=== PATIENT | female | born 1970 | race African-American/Black ===

== ENCOUNTER 2019-01-12 04:13 | Emergency (ER) | payer MEDICARE ==
[~2019-01-12] VITALS: Ht 165.1 cm; Wt 121.6 kg
[~2019-01-12 04:13] MED LIST: ALBUTEROL SULF8.5 GM INH; AZITHROMYCIN250 MG PO; CALCIUM; PRO AIR INHALER; SENSIPAR; TRAMADOL HCL50 MG PO; Z.0.AMLODIPINE BESYL PO; Z.0.GABAPENTIN300 MG PO; Z.0.METOPROLOL TAR10 PO; ZOLPIDEM TARTRA10 MG; [UNRECOGNIZED DRUG - OTHER] PO; [UNRECOGNIZED DRUG - OTHER] PO
[2019-01-12] MEDS ORDERED: DIATRIZOATE MEGL/DIATRIZOA SOD 30 ML BTL PO ONE (04:53)
[2019-01-12] MEDS ORDERED: ONDANSETRON HCL INJ 2MG/ML 2ML 2 MG/ML VIAL ONE (05:03)
--- NOTE | 2019-01-12 06:22 | Diagnostic Imaging Report ---
EXAMINATION: CT of the abdomen and pelvis without contrast. TECHNIQUE: Spiral CT images of the abdomen and pelvis were performed from the lung bases to the lesser trochanters. No intravenous contrast was given due to history of chronic kidney disease. Dilute Gastrografin was given orally.. Coronal and sagittal reformatted images were obtained. COMPARISON: None. CLINICAL HISTORY:Nausea vomiting and diarrhea, onset today DISCUSSION: ABSENCE OF INTRAVENOUS CONTRAST DECREASES SENSITIVITY FOR DETECTION OF FOCAL LESIONS AND VASCULAR PATHOLOGY. ABDOMEN/PELVIS: LOWER THORAX: Unremarkable. HEPATOBILIARY: No focal hepatic lesions. No intra or extrahepatic biliary ductal dilation. GALLBLADDER: No radio-opaque stones or sludge. No wall thickening. SPLEEN: No splenomegaly. PANCREAS: No focal masses or ductal dilatation. ADRENALS: No adrenal nodules. KIDNEYS/URETERS: Bilateral markedly atrophic kidneys. Punctate nonobstructing calculus in the right interpolar region (series 2, image 24). 3 mm obstructing calculus in the left superior to mid aspect (series 2, image 20). 3 mm nonobstructing calculi in the left inferior pole (series 2, images 27 and 28 and coronal images 67 and 66). No ureteral calculi. No hydronephrosis or obstruction. 2.0 cm fluid density simple cyst in the right superior pole (series 2, image 21). Partially exophytic 0.8 cm hyperdense lesion in the right posterior interpolar region (series 2, image 25). PELVIC ORGANS/BLADDER: Bladder is decompressed but grossly unremarkable. Markedly lobulated uterus with multiple partially calcified masses predominantly in the fundus and inferior aspect of the body, consistent with fibroids. No adnexal masses. PERITONEUM/RETROPERITONEUM: No free air or fluid. LYMPH NODES: No intra-abdominal,retroperitoneal, pelvic or inguinal lymphadenopathy. VESSELS: Mild atherosclerotic calcification of the distal abdominal aorta and proximal iliac vessels. GI TRACT: No bowel dilation or evidence of obstruction. No pericolonic inflammatory changes. Descending and sigmoid colon diverticulosis, without diverticulitis. BONES AND SOFT TISSUES: No aggressive lytic lesions. Moderate degenerative disc changes at L5-S1. Large Schmorl's node at L1. Bilateral L5-S1 pars interarticularis defects without significant spondylolisthesis soft tissues are grossly unremarkable. IMPRESSION: 1. No acute abdominopelvic abnormalities within the limitations of this noncontrast exam. No bowel dilation or obstruction. 2. Bilateral nonobstructing calculi, as described. No ureteral or bladder calculi, hydronephrosis or obstruction. 3. Partially exophytic 0.8 cm hyperdense lesion in the right renal posterior interpolar region, which is indeterminate, but may represent a hemorrhagic cyst. This may be further assessed with renal ultrasound. 4. Descending and sigmoid colon diverticulosis, without diverticulitis. Signed by: Dr. Javier Lake M.D. on 01/12/2019 6:19 AM
--- NOTE | 2019-01-12 06:46 | Diagnostic Imaging Report ---
Examination: Single AP view of the chest. COMPARISON: None. INDICATION: Shortness of breath and chest tightness IMPRESSION: Exam limited by soft tissue attenuation from patient's large body habitus 1. Lines and Tubes: None 2. Lungs are grossly clear. No consolidation or effusion. 3. Enlarged cardiac silhouette, which may be partly due to portable AP projection. Pulmonary vasculature is normal. 4. No acute bony abnormalities. Signed by: Dr. Javier Lake M.D. on 01/12/2019 6:42 AM
[2019-01-12 07:27] LABS: BASOPHILS % 0.3 % (0.0-1.0); EOSINOPHILS # (AUTO) 0.3 (0.0-0.4); EOSINOPHILS % 5.3 % (0.0-6.0); HEMATOCRIT 36.5 % (34.2-44.1); HEMOGLOBIN 11.4 g/dL (12.0-16.0); LYMPHOCYTES # (AUTO) 1.5 (1.0-3.2); LYMPHOCYTES % 23.8 % (18.0-39.1); MEAN CORPUSCULAR HEMOGLOBIN 28.6 pg (28-32); MEAN CORPUSCULAR HGB CONC 31.2 g/dL (31-35); MEAN CORPUSCULAR VOLUME 91.5 fL (81-99); MONOCYTES # (AUTO) 0.6 (0.2-0.8); MONOCYTES % 9.4 % (4.4-11.3); NEUTROPHILS # (AUTO) 3.9 (2.1-6.9); PLATELET COUNT 217 x10e3/uL (140-360); RED BLOOD COUNT 3.99 x10e6/uL (3.6-5.1); RED CELL DISTRIBUTION WIDTH 17.6 % (11.7-14.4)
[2019-01-12 08:02] LABS: ALBUMIN 3.4 g/dL (3.5-5.0); ALBUMIN/GLOBULIN RATIO 0.8 (0.8-2.0); ANION GAP 17.8 mmol/L (8-16); CALCIUM 8.7 mg/dL (8.4-10.2); CREATININE, SERUM 6.59 mg/dL (0.57-1.11); POTASSIUM 4.8 mmol/L (3.5-5.1)
[2019-01-12 08:08] LABS: CREATINE KINASE MB 1.6 ng/mL (0-5.0)
[2019-01-12 08:45] VITALS: BP 124/79
== END 2019-01-12 08:54 | disposition home or self-care (01) ==
LOC: ER 04:13
DX: R06.09 Other forms of dyspnea (principal); R11.2 Nausea with vomiting, unspecified; R19.7 Diarrhea, unspecified; N18.6 End stage renal disease; Z99.2 Dependence on renal dialysis; J45.909 Unspecified asthma, uncomplicated
CPT/HCPCS: 36415; 71045; 74176; 80053; 82550; 82553; 84484; 85025; 93005; 99284; J2405

== ENCOUNTER 2022-04-12 13:12 | Inpatient (IN) | payer MEDICARE ==
[~2022-04-12] VITALS: Ht 165.1 cm; Wt 122.9 kg
[2022-04-12] MEDS ORDERED: SODIUM CHLORIDE FLUSH 10 ML SYR IV PRN (13:45)
[2022-04-12] MEDS ORDERED: ALBUTEROL/IPRATROPIUM 3 ML NEB NEB ONE (13:45)
[2022-04-12 13:46] LABS: BASOPHILS % 0.3 % (0.0-1.0); EOSINOPHILS # (AUTO) 0.1 (0.0-0.4); EOSINOPHILS % 0.6 % (0.0-6.0); LYMPHOCYTES # (AUTO) 1.3 (1.0-3.2); LYMPHOCYTES % 10.8 % (18.0-39.1); MEAN CORPUSCULAR HEMOGLOBIN 26.1 pg (28-32); MEAN CORPUSCULAR HGB CONC 28.3 g/dL (31-35); MEAN CORPUSCULAR VOLUME 92.2 fL (81-99); MONOCYTES # (AUTO) 1.6 (0.2-0.8); MONOCYTES % 13.7 % (4.4-11.3); NEUTROPHILS # (AUTO) 8.7 (2.1-6.9); NEUTROPHILS % 73.8 % (38.7-80.0); PLATELET COUNT 263 x10e3/uL (140-360); RED CELL DISTRIBUTION WIDTH 19.5 % (11.7-14.4)
[2022-04-12 13:48] LABS: HEMATOCRIT 21.2 % (34.2-44.1)
[2022-04-12 14:06] LABS: ALANINE AMINOTRANSFERASE 21 IU/L (0-55); ALBUMIN 3.1 g/dL (3.5-5.0); ALBUMIN/GLOBULIN RATIO 0.6 (0.8-2.0); ALKALINE PHOSPHATASE 88 IU/L (40-150); ANION GAP 28.3 mmol/L (8-16); BLOOD UREA NITROGEN 58 mg/dL (7-26); BUN/CREATININE RATIO 5 (6-25); CALCIUM 9.6 mg/dL (8.4-10.2); CARBON DIOXIDE 23 mmol/L (22-29); CHLORIDE 94 mmol/L (98-107); CREATININE, SERUM 10.95 mg/dL (0.57-1.11); GLUCOSE 128 mg/dL (74-118); POTASSIUM 5.3 mmol/L (3.5-5.1); SODIUM 140 mmol/L (136-145)
[2022-04-12] MEDS ORDERED: SODIUM CHLORIDE 0.9% 250ML 250 ML IV ONE (14:15)
[2022-04-12] MEDS ORDERED: CEFTRIAXONE 1 GM VIAL IV ONE (15:00)
[2022-04-12] MEDS ORDERED: DEXTROSE 50% SYRINGE 50 ML IV STA (15:02)
[2022-04-12] MEDS ORDERED: ALBUTEROL SULF 0.083% NEB SOLN 3 ML NEB NEB STA (15:02)
[2022-04-12] MEDS ORDERED: INSULIN REGULAR, HUMAN 100 UNIT/1 ML IV ONE (15:15)
[2022-04-12] MEDS ORDERED: SODIUM CHLORIDE FLUSH 10 ML SYR INJ PRN (15:30)
[2022-04-12] MEDS ORDERED: SODIUM BICARBONATE 8.4% INJ 50 ML SYR IV ONE (15:30)
[2022-04-12] MEDS ORDERED: CALCIUM GLUC 1 G/50 ML NACL 100 ML IV ONE (15:30)
[2022-04-12] MEDS ORDERED: SODIUM CHLORIDE 0.9% 1000ML 2,000 ML ONE (16:05)
[2022-04-12] MEDS ORDERED: SODIUM CHLORIDE 0.9% 250ML 250 ML ONE ×2 (17:20→21:16)
[2022-04-12] MEDS ORDERED: ALBUTEROL/IPRATROPIUM 3 ML NEB NEB PRN (18:00)
[2022-04-12] MEDS: METOPROLOL TARTRATE 25 MG TAB PO SCH ×2 (18:20→22:00)
[2022-04-12] MEDS ORDERED: GABAPENTIN 300 MG CAP PO SCH (21:00)
[2022-04-12] MEDS ORDERED: ACETAMINOPHEN 325 MG TAB PO PRN (21:00)
[2022-04-12] MEDS ORDERED: ACETAMINOPHEN 325 MG TAB ONE (21:07)
[2022-04-12] MEDS ORDERED: LEVALBUTEROL HCL SOLN NEBU 1.25 MG/3 ML NEB INH PRN (21:30)
[2022-04-12 21:48] LABS: ABG PCO2 46 mmHg (35-45); ABG PH 7.45 (7.35-7.45); ABG PO2 56 mmHg (80-105)
[2022-04-12 21:49] LABS: ABG HCO3 32 mmol/L (22-26); ABG TCO2 33
[2022-04-12] MEDS ORDERED: PIPERACILLIN/TAZOBACTAM SOD 2.25 GM VIAL ONE (21:57)
[2022-04-12] MEDS: LEVALBUTEROL HCL SOLN NEBU 1.25 MG/3 ML NEB INH SCH (22:08)
[2022-04-13] VITALS (19 sets, daily range): BP systolic 121–159; BP diastolic 69–119
[2022-04-13] MEDS: LEVALBUTEROL HCL SOLN NEBU 1.25 MG/3 ML NEB INH SCH ×4 (02:02→19:10)
[2022-04-13] MEDS: GUAIFENESIN 200 MG/10 ML UDC PO PRN (05:17)
[2022-04-13] MEDS: METOPROLOL TARTRATE 25 MG TAB PO SCH ×3 (05:22→21:18)
[2022-04-13 05:34] LABS: BASOPHILS # (AUTO) 0.1 (0.0-0.1); BASOPHILS % 0.7 % (0.0-1.0); EOSINOPHILS # (AUTO) 0.1 (0.0-0.4); EOSINOPHILS % 0.4 % (0.0-6.0); HEMOGLOBIN 6.7 g/dL (12.0-16.0); LYMPHOCYTES # (AUTO) 0.7 (1.0-3.2); LYMPHOCYTES % 5.1 % (18.0-39.1); MEAN CORPUSCULAR HEMOGLOBIN 27.3 pg (28-32); MEAN CORPUSCULAR HGB CONC 30.9 g/dL (31-35); MEAN CORPUSCULAR VOLUME 88.6 fL (81-99); MONOCYTES # (AUTO) 1.7 (0.2-0.8); MONOCYTES % 11.7 % (4.4-11.3); NEUTROPHILS # (AUTO) 11.6 (2.1-6.9); NEUTROPHILS % 81.3 % (38.7-80.0); PLATELET COUNT 229 x10e3/uL (140-360); RED BLOOD COUNT 2.45 x10e6/uL (3.6-5.1); RED CELL DISTRIBUTION WIDTH 18.6 % (11.7-14.4)
[2022-04-13 05:38] LABS: HEMATOCRIT 21.7 % (34.2-44.1)
[2022-04-13 05:56] LABS: ALBUMIN 2.8 g/dL (3.5-5.0); ALBUMIN/GLOBULIN RATIO 0.6 (0.8-2.0); ANION GAP 22.8 mmol/L (8-16); CALCIUM 9.9 mg/dL (8.4-10.2); CREATININE, SERUM 6.83 mg/dL (0.57-1.11); POTASSIUM 4.8 mmol/L (3.5-5.1)
[2022-04-13 06:11] LABS: THYROID STIMULATING HORMONE 0.576 uIU/mL (0.350-4.940)
[2022-04-13 07:41] LABS: BAND NEUTROPHILS % (MANUAL) 15 %; LYMPHOCYTES % (MANUAL) 3 % (19-48); MONOCYTES % (MANUAL) 13 % (3.4-9.0); NEUTROPHILS % (MANUAL) 68 % (40-74); NUCLEATED RED BLOOD CELLS 1; PLATELET ESTIMATE ADEQUATE; PLATELET MORPHOLOGY COMMENT NORMAL
[2022-04-13 07:42] LABS: HYPOCHROMASIA SLIGHT; TARGET CELLS FEW
[2022-04-13] MEDS ORDERED: SODIUM CHLORIDE 0.9% 250ML 250 ML ONE (07:58)
[2022-04-13] MEDS: AMLODIPINE BESYLATE 5 MG TAB PO SCH (08:20)
[2022-04-13] MEDS: GUAIFENESIN/CODEINE 5 ML LIQD PO PRN ×2 (09:41→21:18)
[2022-04-14] VITALS (16 sets, daily range): BP systolic 129–177; BP diastolic 70–115
[2022-04-14] MEDS: LEVALBUTEROL HCL SOLN NEBU 1.25 MG/3 ML NEB INH SCH ×4 (00:42→19:22)
[2022-04-14] MEDS: METOPROLOL TARTRATE 25 MG TAB PO SCH ×3 (06:18→20:53)
[2022-04-14 07:36] LABS: BASOPHILS % 0.3 % (0.0-1.0); EOSINOPHILS # (AUTO) 0.2 (0.0-0.4); EOSINOPHILS % 1.5 % (0.0-6.0); HEMATOCRIT 26.1 % (34.2-44.1); HEMOGLOBIN 7.9 g/dL (12.0-16.0); LYMPHOCYTES # (AUTO) 1.1 (1.0-3.2); MEAN CORPUSCULAR HEMOGLOBIN 27.6 pg (28-32); MEAN CORPUSCULAR HGB CONC 30.3 g/dL (31-35); MEAN CORPUSCULAR VOLUME 91.3 fL (81-99); MONOCYTES # (AUTO) 1.9 (0.2-0.8); MONOCYTES % 13.7 % (4.4-11.3); NEUTROPHILS # (AUTO) 10.3 (2.1-6.9); NEUTROPHILS % 74.9 % (38.7-80.0); PLATELET COUNT 241 x10e3/uL (140-360); RED BLOOD COUNT 2.86 x10e6/uL (3.6-5.1); RED CELL DISTRIBUTION WIDTH 18.3 % (11.7-14.4)
[2022-04-14 08:08] LABS: ALBUMIN 2.7 g/dL (3.5-5.0); ALBUMIN/GLOBULIN RATIO 0.5 (0.8-2.0); CALCIUM 10.3 mg/dL (8.4-10.2); CREATININE, SERUM 8.67 mg/dL (0.57-1.11)
[2022-04-14] MEDS ORDERED: SODIUM CHLORIDE 0.9% 1000ML 2,000 ML IV PRN (08:30)
[2022-04-14] MEDS ORDERED: ALBUMIN 25% 12.5GM 0.25 GM/ML BTL IV PRN (08:30)
[2022-04-14] MEDS ORDERED: LINEZOLID 600 MG/D5W 300ML 300 ML IV SCH (13:00)
[2022-04-14 13:44] LABS: ABG HCO3 33 mmol/L (22-26); ABG PCO2 53 mmHg (35-45); ABG PH 7.41 (7.35-7.45); ABG PO2 201 mmHg (80-105); ABG TCO2 35
[2022-04-14] MEDS ORDERED: GENTAMICIN 80MG/NS 100 ML 100 ML IV ONE ×2 (14:00→18:30)
[2022-04-14] MEDS: AMLODIPINE BESYLATE 5 MG TAB PO SCH (17:41)
[2022-04-14] MEDS: LINEZOLID 600 MG/D5W 300ML 300 ML IV SCH (20:53)
[2022-04-15] VITALS (12 sets, daily range): BP systolic 125–164; BP diastolic 67–120
[2022-04-15] MEDS: LEVALBUTEROL HCL SOLN NEBU 1.25 MG/3 ML NEB INH SCH ×4 (01:38→19:25)
[2022-04-15] MEDS: METOPROLOL TARTRATE 25 MG TAB PO SCH ×3 (06:21→22:27)
[2022-04-15 07:30] LABS: BASOPHILS % 0.3 % (0.0-1.0); EOSINOPHILS # (AUTO) 0.1 (0.0-0.4); EOSINOPHILS % 0.8 % (0.0-6.0); HEMATOCRIT 25.8 % (34.2-44.1); HEMOGLOBIN 7.7 g/dL (12.0-16.0); MEAN CORPUSCULAR HEMOGLOBIN 27.6 pg (28-32); MEAN CORPUSCULAR HGB CONC 29.8 g/dL (31-35); MEAN CORPUSCULAR VOLUME 92.5 fL (81-99); MONOCYTES # (AUTO) 1.2 (0.2-0.8); MONOCYTES % 10.1 % (4.4-11.3); NEUTROPHILS # (AUTO) 9.4 (2.1-6.9); NEUTROPHILS % 78.4 % (38.7-80.0); PLATELET COUNT 251 x10e3/uL (140-360); RED BLOOD COUNT 2.79 x10e6/uL (3.6-5.1); RED CELL DISTRIBUTION WIDTH 18.5 % (11.7-14.4)
[2022-04-15 07:43] LABS: ALBUMIN 2.6 g/dL (3.5-5.0); ALBUMIN/GLOBULIN RATIO 0.5 (0.8-2.0); ANION GAP 25.1 mmol/L (8-16); CALCIUM 10.8 mg/dL (8.4-10.2); CREATININE, SERUM 5.69 mg/dL (0.57-1.11); POTASSIUM 4.1 mmol/L (3.5-5.1)
[2022-04-15] MEDS: LINEZOLID 600 MG/D5W 300ML 300 ML IV SCH ×2 (08:44→19:25)
[2022-04-15] MEDS ORDERED: EPINEPHRINE HCL 1:1000 1ML 1 MG/ML AMP ONE (09:15)
[2022-04-15] MEDS ORDERED: LIDOCAINE HCL 4% 50 ML BTL ONE (09:15)
[2022-04-15] MEDS ORDERED: ALBUTEROL/IPRATROPIUM 3 ML NEB ONE (10:21)
[2022-04-15] MEDS ORDERED: DEXAMETHASONE SOD PHOS INJ 4 MG/ML SDV ONE (12:23)
[2022-04-15] MEDS ORDERED: PROPOFOL IV EMULSION 10 MG/ML 20 ML VIAL ONE (12:23)
[2022-04-15] MEDS ORDERED: SEVOFLURANE INHAL SOLN 250 ML PEN BTL ONE (12:23)
[2022-04-15] MEDS ORDERED: LIDOCAINE HCL 2% LOCAL INJ 5 ML SDV VIAL INJ ONE (12:23)
[2022-04-15] MEDS ORDERED: POVIDONE IODINE 0.05% 0.05 % ML PO ONE (12:23)
[2022-04-15] MEDS ORDERED: ROCURONIUM BROMIDE 10 MG/ML 5ML VIAL IV ONE (12:23)
[2022-04-15] MEDS ORDERED: SUCCINYLCHOLINE CHLORIDE 20 MG/ML 10ML VIAL ONE (12:23)
[2022-04-15] MEDS ORDERED: ONDANSETRON HCL INJ 2MG/ML 2ML 2 MG/ML VIAL ONE (12:23)
[2022-04-15] MEDS ORDERED: FENTANYL CITRATE/PF 100MCG/2 ML INJ ONE (12:29)
[2022-04-15] MEDS: AMLODIPINE BESYLATE 5 MG TAB PO SCH (15:17)
[2022-04-15] MEDS ORDERED: METHYLPREDNISOLONE SOD SUCC 125 MG/2ML VIAL IV ONE (16:15)
[2022-04-15] MEDS: TRAMADOL HCL 50 MG TAB PO PRN ×4 (19:24→20:40)
[2022-04-15] MEDS: GUAIFENESIN/CODEINE 5 ML LIQD PO PRN (23:59)
[2022-04-16] VITALS (19 sets, daily range): BP systolic 134–210; BP diastolic 73–104
[2022-04-16] MEDS: LEVALBUTEROL HCL SOLN NEBU 1.25 MG/3 ML NEB INH SCH ×4 (01:10→18:58)
[2022-04-16] MEDS: METOPROLOL TARTRATE 25 MG TAB PO SCH ×3 (05:11→20:16)
[2022-04-16] MEDS: TRAMADOL HCL 50 MG TAB PO PRN (06:01)
[2022-04-16 07:02] LABS: ALBUMIN 2.8 g/dL (3.5-5.0); ALBUMIN/GLOBULIN RATIO 0.5 (0.8-2.0); ANION GAP 27.9 mmol/L (8-16); CALCIUM 10.8 mg/dL (8.4-10.2); CREATININE, SERUM 7.75 mg/dL (0.57-1.11); POTASSIUM 4.9 mmol/L (3.5-5.1)
[2022-04-16 07:15] LABS: HEMOGLOBIN 7.6 g/dL (12.0-16.0); MEAN CORPUSCULAR HEMOGLOBIN 27.2 pg (28-32); MEAN CORPUSCULAR HGB CONC 29.2 g/dL (31-35); MEAN CORPUSCULAR VOLUME 93.2 fL (81-99); PLATELET COUNT 244 x10e3/uL (140-360); RED BLOOD COUNT 2.79 x10e6/uL (3.6-5.1); RED CELL DISTRIBUTION WIDTH 18.9 % (11.7-14.4)
[2022-04-16] MEDS: AMLODIPINE BESYLATE 5 MG TAB PO SCH (08:28)
[2022-04-16] MEDS: LINEZOLID 600 MG/D5W 300ML 300 ML IV SCH ×2 (08:29→20:15)
[2022-04-16 08:42] LABS: LYMPHOCYTES % (MANUAL) 4 % (19-48); METAMYELOCYTES % (MANUAL) 1 % (0-0); MONOCYTES % (MANUAL) 2 % (3.4-9.0); NEUTROPHILS % (MANUAL) 93 % (40-74); NUCLEATED RED BLOOD CELLS 2; PLATELET ESTIMATE ADEQUATE; PLATELET MORPHOLOGY COMMENT NORMAL; RBC MORPHOLOGY COMMENT NORMAL
[2022-04-16] MEDS ORDERED: EPOETIN ALFA-EPBX 10,000 UNIT/ML VIAL SC ONE (11:15)
[2022-04-16] MEDS: IRON SUCROSE 100 MG in SODIUM CHLORIDE 0.9% 100 ML IV SCH (11:47)
[2022-04-17] VITALS (33 sets, daily range): BP systolic 102–150; BP diastolic 52–97
[2022-04-17] MEDS: ZOLPIDEM TARTRATE 5 MG TAB PO PRN (00:28)
[2022-04-17] MEDS: LEVALBUTEROL HCL SOLN NEBU 1.25 MG/3 ML NEB INH SCH ×4 (01:13→19:05)
[2022-04-17] MEDS: GUAIFENESIN/CODEINE 5 ML LIQD PO PRN ×2 (03:36→09:44)
[2022-04-17] MEDS: METOPROLOL TARTRATE 25 MG TAB PO SCH ×3 (05:09→21:28)
[2022-04-17 07:40] LABS: ALBUMIN 2.8 g/dL (3.5-5.0); ALBUMIN/GLOBULIN RATIO 0.6 (0.8-2.0); ANION GAP 22.5 mmol/L (8-16); CALCIUM 11.4 mg/dL (8.4-10.2); CREATININE, SERUM 5.5 mg/dL (0.57-1.11); POTASSIUM 3.5 mmol/L (3.5-5.1)
[2022-04-17] MEDS: LINEZOLID 600 MG/D5W 300ML 300 ML IV SCH ×2 (08:52→21:27)
[2022-04-17] MEDS: AMLODIPINE BESYLATE 5 MG TAB PO SCH (08:52)
[2022-04-17] MEDS: IRON SUCROSE 100 MG in SODIUM CHLORIDE 0.9% 100 ML IV SCH (11:23)
[2022-04-17] MEDS ORDERED: EPOETIN ALFA-EPBX 10,000 UNIT/ML VIAL SC ONE (12:15)
[2022-04-17] MEDS: SEVELAMER CARBONATE 800 MG TAB PO SCH ×2 (12:53→16:32)
[2022-04-17] MEDS: TRAMADOL HCL 50 MG TAB PO PRN (22:51)
[2022-04-18] VITALS: BP 137/79
[2022-04-18 01:01] VITALS: BP 124/81
[2022-04-18] MEDS: LEVALBUTEROL HCL SOLN NEBU 1.25 MG/3 ML NEB INH SCH ×4 (01:25→19:15)
[2022-04-18] MEDS: ZOLPIDEM TARTRATE 5 MG TAB PO PRN (02:08)
[2022-04-18 06:03] VITALS: BP 144/70
[2022-04-18] MEDS: METOPROLOL TARTRATE 25 MG TAB PO SCH ×3 (06:04→21:40)
[2022-04-18] MEDS: AMLODIPINE BESYLATE 5 MG TAB PO SCH (09:01)
[2022-04-18] MEDS: SEVELAMER CARBONATE 800 MG TAB PO SCH ×3 (09:01→17:00)
[2022-04-18] MEDS: LINEZOLID 600 MG/D5W 300ML 300 ML IV SCH ×2 (09:02→21:40)
[2022-04-18] MEDS: TRAMADOL HCL 50 MG TAB PO PRN (10:03)
[2022-04-18] MEDS: IRON SUCROSE 100 MG in SODIUM CHLORIDE 0.9% 100 ML IV SCH (12:40)
[2022-04-18 14:08] VITALS: BP 135/91
[2022-04-18 17:32] VITALS: BP 132/90
[2022-04-18] MEDS: GUAIFENESIN 200 MG/10 ML UDC PO PRN (17:49)
[2022-04-18 20:00] VITALS: BP 119/73
[2022-04-19] VITALS (8 sets, daily range): BP systolic 101–127; BP diastolic 52–85
[2022-04-19] MEDS: LEVALBUTEROL HCL SOLN NEBU 1.25 MG/3 ML NEB INH SCH ×4 (00:10→19:10)
[2022-04-19] MEDS: METOPROLOL TARTRATE 25 MG TAB PO SCH ×3 (05:41→21:44)
[2022-04-19 05:44] LABS: BASOPHILS % 0.3 % (0.0-1.0); EOSINOPHILS # (AUTO) 0.2 (0.0-0.4); EOSINOPHILS % 2.1 % (0.0-6.0); HEMATOCRIT 26.7 % (34.2-44.1); HEMOGLOBIN 7.9 g/dL (12.0-16.0); LYMPHOCYTES # (AUTO) 1.7 (1.0-3.2); LYMPHOCYTES % 16.6 % (18.0-39.1); MEAN CORPUSCULAR HEMOGLOBIN 27.4 pg (28-32); MEAN CORPUSCULAR HGB CONC 29.6 g/dL (31-35); MEAN CORPUSCULAR VOLUME 92.7 fL (81-99); MONOCYTES # (AUTO) 0.9 (0.2-0.8); MONOCYTES % 8.9 % (4.4-11.3); NEUTROPHILS # (AUTO) 6.8 (2.1-6.9); PLATELET COUNT 265 x10e3/uL (140-360); RED BLOOD COUNT 2.88 x10e6/uL (3.6-5.1); RED CELL DISTRIBUTION WIDTH 17.9 % (11.7-14.4)
[2022-04-19 06:19] LABS: ANION GAP 22.7 mmol/L (8-16); CALCIUM 11.5 mg/dL (8.4-10.2); CREATININE, SERUM 8.28 mg/dL (0.57-1.11); POTASSIUM 3.7 mmol/L (3.5-5.1)
[2022-04-19] MEDS: LINEZOLID 600 MG/D5W 300ML 300 ML IV SCH (08:37)
[2022-04-19] MEDS: AMLODIPINE BESYLATE 5 MG TAB PO SCH (08:37)
[2022-04-19] MEDS: SEVELAMER CARBONATE 800 MG TAB PO SCH ×3 (08:37→16:48)
[2022-04-19] MEDS: TRAMADOL HCL 50 MG TAB PO PRN (08:39)
[2022-04-19] MEDS: IRON SUCROSE 100 MG in SODIUM CHLORIDE 0.9% 100 ML IV SCH (11:30)
[2022-04-19] MEDS ORDERED: EPOETIN ALFA-EPBX 10,000 UNIT/ML VIAL SC SCH (12:00)
[2022-04-19] MEDS: LINEZOLID 600 MG TAB PO SCH (21:44)
[2022-04-20] VITALS: BP 110/69
[2022-04-20 04:00] VITALS: BP 132/83
[2022-04-20] MEDS: METOPROLOL TARTRATE 25 MG TAB PO SCH (06:25)
[2022-04-20] MEDS: LEVALBUTEROL HCL SOLN NEBU 1.25 MG/3 ML NEB INH SCH ×4 (06:30→20:25)
[2022-04-20 07:40] VITALS: BP 148/80
[2022-04-20] MEDS: SEVELAMER CARBONATE 800 MG TAB PO SCH ×3 (08:46→17:04)
[2022-04-20] MEDS: LINEZOLID 600 MG TAB PO SCH ×2 (08:46→20:31)
[2022-04-20] MEDS: AMLODIPINE BESYLATE 5 MG TAB PO SCH (08:46)
[2022-04-20] MEDS: TRAMADOL HCL 50 MG TAB PO PRN ×2 (09:28→20:32)
[2022-04-20] MEDS: METOPROLOL TARTRATE 50 MG TAB PO SCH ×2 (09:45→17:05)
[2022-04-20 11:18] VITALS: BP 105/71
[2022-04-20] MEDS: IRON SUCROSE 100 MG in SODIUM CHLORIDE 0.9% 100 ML IV SCH (13:49)
[2022-04-20 15:18] VITALS: BP 112/75
[2022-04-20] MEDS: PANTOPRAZOLE SOD 40 MG TABEC PO SCH (17:03)
[2022-04-20 21:00] VITALS: BP 135/83
[2022-04-21] VITALS: BP 114/60
[2022-04-21] MEDS: LEVALBUTEROL HCL SOLN NEBU 1.25 MG/3 ML NEB INH SCH ×3 (01:40→13:50)
[2022-04-21 04:00] VITALS: BP 112/60
[2022-04-21 08:00] VITALS: BP 112/60
[2022-04-21 08:24] VITALS: BP 140/79
[2022-04-21 08:54] LABS: ANION GAP 19.1 mmol/L (8-16); CALCIUM 11.6 mg/dL (8.4-10.2); CREATININE, SERUM 8.73 mg/dL (0.57-1.11); POTASSIUM 4.1 mmol/L (3.5-5.1)
[2022-04-21] MEDS: METOPROLOL TARTRATE 50 MG TAB PO SCH ×2 (09:00→18:27)
[2022-04-21] MEDS: LINEZOLID 600 MG TAB PO SCH (09:01)
[2022-04-21] MEDS: PANTOPRAZOLE SOD 40 MG TABEC PO SCH ×2 (09:01→18:27)
[2022-04-21] MEDS: TRAMADOL HCL 50 MG TAB PO PRN (09:02)
[2022-04-21] MEDS: SEVELAMER CARBONATE 800 MG TAB PO SCH ×3 (09:02→18:27)
[2022-04-21 12:11] VITALS: BP 123/78
[2022-04-21 15:52] VITALS: BP 125/81
[2022-04-25] MEDS ORDERED: PROAIR DIGIHAL90 MCG INH ×2 (11:53→12:03)
[2022-04-25] MEDS ORDERED: ALBUTEROL2.5 MG/3 M INH ×2 (11:53→12:03)
[2022-04-25] MEDS ORDERED: BENZONATATE100 MG PO ×2 (11:53→12:03)
== END 2022-04-21 18:47 | disposition home or self-care (01) | DRG 871 ==
LOC: ER 13:21 → ERHOLD 15:28 → ICU 04-13 00:14 → MED/SURG2 04-18 00:46
PROVIDERS: ADMIT Internal Medicine; ATTEND Internal Medicine
PROC: 5A1D70Z Performance of Urinary Filtration, Intermittent, Less than 6 Hours Per Day (ICD-10-PCS; 2022-04-12)
PROC: 30243N1 Transfusion of Nonautologous Red Blood Cells into Central Vein, Percutaneous Approach (ICD-10-PCS; 2022-04-12)
PROC: 3E04329 Introduction of Other Anti-infective into Central Vein, Percutaneous Approach (ICD-10-PCS; 2022-04-12)
PROC: 5A09357 Assistance with Respiratory Ventilation, Less than 24 Consecutive Hours, Continuous Positive Airway Pressure (ICD-10-PCS; 2022-04-12)
PROC: 0B948ZZ Drainage of Right Upper Lobe Bronchus, Via Natural or Artificial Opening Endoscopic (ICD-10-PCS; 2022-04-15)
PROC: 0B968ZZ Drainage of Right Lower Lobe Bronchus, Via Natural or Artificial Opening Endoscopic (ICD-10-PCS; principal; 2022-04-15 09:33)
DX: A40.3 Sepsis due to Streptococcus pneumoniae (principal); G93.41 Metabolic encephalopathy; J13 Pneumonia due to Streptococcus pneumoniae; R65.20 Severe sepsis without septic shock; N18.6 End stage renal disease; J96.21 Acute and chronic respiratory failure with hypoxia; N25.81 Secondary hyperparathyroidism of renal origin; Z68.41 Body mass index [BMI] 40.0-44.9, adult; E87.20 Acidosis, unspecified; I13.2 Hypertensive heart and chronic kidney disease with heart failure and with stage 5 chronic kidney disease, or end stage renal disease; Z99.2 Dependence on renal dialysis; D50.0 Iron deficiency anemia secondary to blood loss (chronic); G47.33 Obstructive sleep apnea (adult) (pediatric); E66.01 Morbid (severe) obesity due to excess calories; J45.909 Unspecified asthma, uncomplicated; Z20.822 Contact with and (suspected) exposure to COVID-19; I50.9 Heart failure, unspecified
CPT/HCPCS: 31622; 36415; 36600; 71045; 71250; 80048; 80053; 82270; 82607; 82746; 82805; 82948; 83036; 83540; 83605; 83735; 83880; 84100; 84443; 84466; 84484; 84702; 85007; 85025; 85027; 86704; 86706; 86850; 86900; 86920; 87040; 87070; 87102; 87116; 87205; 87206; 87335; 87340; 90962; 93005; 93306; 94660; 94760; 94799; 99251; 99285; J0171; J0330; J0456; J0696; J1100; J1580; J1756; J1817; J2001; J2020; J2185; J2405; J2543; J2930; J3010; J7030; J7050; J7799; P9016

== ENCOUNTER 2022-08-31 13:38 | Emergency (ER) | payer MEDICARE ==
[~2022-08-31] VITALS: Ht 165.1 cm; Wt 122.9 kg
[~2022-08-31 13:38] MED LIST changes: +ALBUTEROL2.5 MG/3 M INH; +BENZONATATE100 MG PO; +PROAIR DIGIHAL90 MCG INH
[2022-08-31 13:43] VITALS: O2SAT 100
== END 2022-08-31 18:45 | disposition home or self-care (01) ==
LOC: ER 13:43
DX: M79.662 Pain in left lower leg (principal); M79.661 Pain in right lower leg; I12.9 Hypertensive chronic kidney disease with stage 1 through stage 4 chronic kidney disease, or unspecified chronic kidney disease; N18.9 Chronic kidney disease, unspecified; Z99.2 Dependence on renal dialysis; G47.30 Sleep apnea, unspecified; J45.909 Unspecified asthma, uncomplicated
CPT/HCPCS: 99282